=== PATIENT | female | born 1985 | race Caucasian/White ===

== ENCOUNTER 2018-03-10 15:47 | Emergency (ER) | payer MEDICAID ==
[2018-03-10 16:25] LABS: PLATELET COUNT 318 10^3/uL (150-400)
--- NOTE | 2018-03-10 16:28 | EDPHY ---
H & P Stated Complaint: seizure Time Seen by Provider: 03/10/18 16:22 HPI/ROS: CHIEF COMPLAINT: Seizure HISTORY OF PRESENT ILLNESS: Patient is a 32-year-old female with a history of epilepsy who is on Lamictal and another seizure medication she cannot remember. She was working today at [employer] and she had a generalized tonic -clonic seizure. She was postictal when EMS arrived and brought her here. They gave her 2 mg of Versed in the ambulance. She is now awake and alert and oriented x3. She tells me that this is consistent with her seizures which she has about once a year. She has been taking medications. She follows up with a neurologist in [place]. She does not wish to have any new testing done here today. No recent fevers. No trauma. REVIEW OF SYSTEMS: Constitutional: denies: chills, fever, recent illness, recent injury EENTM: denies: blurred vision, double vision, nose congestion Respiratory: denies: cough, shortness of breath Cardiac: denies: chest pain, irregular heart rate, lightheadedness, palpitations Gastrointestinal/Abdominal: denies: abdominal pain, diarrhea, nausea, vomiting, blood streaked stools Genitourinary: denies: dysuria, frequency, hematuria, pain Musculoskeletal: denies: joint pain, muscle pain Skin: denies: lesions, rash, jaundice, bruising Neurological: See HPI Hematologic/Lymphatic: denies: blood clots, easy bleeding, easy bruising Immunologic/allergic: denies: HIV/AIDS, transplant EXAM: GENERAL: Tearful, well-nourished and in no acute distress. HEAD: Atraumatic, normocephalic. EYES: Pupils equal round and reactive to light, extraocular movements intact, sclera anicteric, conjunctiva are normal. ENT: TMs normal, nares patent, oropharynx clear without exudates. Moist mucous membranes. NECK: Normal range of motion, supple without lymphadenopathy or JVD. LUNGS: Breath sounds clear to auscultation bilaterally and equal. No wheezes rales or rhonchi. HEART: Regular rate and rhythm without murmurs, rubs or gallops. ABDOMEN: Soft, nontender, normoactive bowel sounds. No guarding, no rebound. No masses appreciated. BACK: No CVA tenderness, no spinal tenderness, step-offs or deformities EXTREMITIES: Normal range of motion, no pitting or edema. No clubbing or cyanosis. NEUROLOGICAL: Cranial nerves II through XII grossly intact. Normal speech, normal gait. 5/5 strength, normal movement in all extremities, normal sensation PSYCH: Normal mood, normal affect. SKIN: Warm, dry, normal turgor, no visible rashes or lesions. Source: Patient Exam Limitations: No limitations - Personal History LMP (Females 10-55): Now Current Tetanus Diphtheria and Acellular Pertussis (TDAP): Yes - Medical/Surgical History Hx Asthma: No Hx Chronic Respiratory Disease: No Hx Diabetes: No Hx Cardiac Disease: No Hx Renal Disease: No Hx Cirrhosis: No Hx Alcoholism: No Hx HIV/AIDS: No Hx Splenectomy or Spleen Trauma: No Other PMH: Epilepsy, cervical cancer - Family History Significant Family History: No pertinent family hx - Social History Smoking Status: Former smoker Alcohol Use: Sober Drug Use: None Constitutional: Initial Vital Signs Temperature (C) 36.5 C 03/10/18 15:55 Heart Rate 88 03/10/18 15:55 Respiratory Rate 18 03/10/18 15:55 Blood Pressure 113/62 03/10/18 15:55 O2 Sat (%) 93 03/10/18 15:55 O2 Delivery Mode Room Air Allergies/Adverse Reactions: Cephalosporins Allergy (Verified 03/10/18 16:19) Penicillins Allergy (Verified 03/10/18 16:19) Home Medications: Medication Instructions Recorded Lamictal 03/10/18 Medical Decision Making ED Course/Re-evaluation: 5:15 p.m. the patient is feeling much better. She is awake and alert. She is eager to go home. She will start trying to get a ride. She did have a headache earlier and received Toradol. Differential Diagnosis: Partial list of the Differential diagnosis considered include but were not limited to; seizure, epilepsy and although unlikely based on the history and physical exam, I also considered hemorrhage, infection, trauma. - Data Points Laboratory Results: Laboratory Results 03/10/18 16:20 03/10/18 16:20 Medications Given: Discontinued Medications Ketorolac Tromethamine (Toradol) 30 mg IVP EDNOW ONE Stop: 03/10/18 16:50 Last Admin: 03/10/18 16:53 Dose: 30 mg Departure - Departure Disposition: Home, Routine, Self-Care Clinical Impression: Seizure disorder Condition: Fair Instructions: Epilepsy (ED) Referrals: Patient,NotPresent [Unknown] - As per Instructions
[2018-03-10] MEDS ORDERED: KETOROLAC 30 MG/1 ML SDV IVP ONE (16:49)
[2018-03-10 17:50] VITALS: BP 105/64
== END 2018-03-10 17:48 | disposition home or self-care (01) ==
LOC: EDBD 15:47 → MERGE 15:47
DX: G40.909 Epilepsy, unspecified, not intractable, without status epilepticus (principal); Z85.41 Personal history of malignant neoplasm of cervix uteri; Z87.891 Personal history of nicotine dependence
CPT/HCPCS: 96374; J1885